=== PATIENT | male | born 1995 | race Caucasian/White ===

== ENCOUNTER 2018-06-13 23:05 | Emergency (ER) | payer BC ==
[~2018-06-13] VITALS: Ht 177.8 cm; Wt 84.7 kg
[2018-06-13 23:08] VITALS: BP 132/82
--- NOTE | 2018-06-13 23:25 | NUR ---
Xray done. awaiting result.
--- NOTE | 2018-06-14 00:12 | NUR ---
sir splint applied. crutches provided. patient discharged with prescription and instruction. verbalized understanding.
== END 2018-06-14 00:17 | disposition home or self-care (01) ==
LOC: ED 06-14 00:07
DX: S93.492A Sprain of other ligament of left ankle, initial encounter (principal); Z87.891 Personal history of nicotine dependence; X58.XXXA Exposure to other specified factors, initial encounter; Y93.89 Activity, other specified; Y92.830 Public park as the place of occurrence of the external cause; Y99.8 Other external cause status
CPT/HCPCS: 29515; 99283